=== PATIENT | male | born 1980 | race Caucasian/White ===

== ENCOUNTER 2019-10-01 16:33 | Outpatient (RCR) | payer BC ==
[2019-10-01 19:28] LABS: SEMEN VOLUME 2.4 ML (1.5-5.0)
== END 2019-12-30 | disposition home or self-care (01) ==
LOC: LAB 16:33
PROVIDERS: ATTEND Urology
DX: N46.9 Male infertility, unspecified (principal)
CPT/HCPCS: 89320

== ENCOUNTER → 2019-10-07 | Outpatient (CLI) | payer BC ==
--- NOTE | 2019-10-07 11:03 | Diagnostic Imaging Report ---
PROCEDURE: US Scrotum. TECHNIQUE: Multiple real-time grayscale images were obtained over the scrotum in various projections bilaterally. INDICATION: Varicocele. FINDINGS: There is a 6 mm incidental benign left epididymal head cyst. The epididymides appear nonacute and otherwise normal. There is a small left-sided patent varicocele. Heterogeneity of the left testicular parenchyma is present relatively hypoechoic in its anterior one-third without an appreciable mass effect. Right testicular parenchyma is somewhat heterogeneous throughout but nonfocal. There is color Doppler blood flow to both testicles. IMPRESSION: Small left varicocele and tiny benign left epididymal head cyst. Mild heterogeneity of testicular parenchyma more focally on the left anteriorly without an identifiable mass effect. Consider follow-up exam assuming no palpable abnormality is clinically present. Dictated by: Dictated on workstation # [id number]
== END ==
LOC: RAD 08:38
PROVIDERS: ATTEND Urology
DX: I86.1 Scrotal varices (principal)
CPT/HCPCS: 76870

== ENCOUNTER 2020-01-13 17:19 | Outpatient (RCR) | payer BC ==
[2020-01-13 20:10] LABS: SEMEN VOLUME 3.5 ML (1.5-5.0)
== END 2020-04-12 | disposition home or self-care (01) ==
LOC: LAB 17:19
PROVIDERS: ATTEND Urology
DX: N46.9 Male infertility, unspecified (principal)
CPT/HCPCS: 89320

== ENCOUNTER → 2020-04-09 | Outpatient (CLI) | payer BC | LOC: LAB 14:01 | PROVIDERS: ATTEND Urology | DX: I86.1 Scrotal varices (principal) | CPT/HCPCS: 89320 ==

== ENCOUNTER 2020-07-22 12:00 | Outpatient (RCR) | payer BC | END 2020-10-09 | disposition home or self-care (01) | LOC: LAB 12:00 | PROVIDERS: ATTEND Urology | DX: I86.1 Scrotal varices (principal) | CPT/HCPCS: 89320 ==